=== PATIENT | female | born 1980 | race Caucasian/White ===

== ENCOUNTER 2016-08-28 16:17 | Outpatient (CLI) | payer OTHER ==
[~2016-08-28] VITALS: Ht 167.6 cm; Wt 104.0 kg
[2016-08-28 16:32] VITALS: Ht 167.6 cm; Wt 104.0 kg
[2016-08-28 16:33] VITALS: BP 114/67; PULSE 95; RESP 18
[2016-08-28] MEDS ORDERED: PRENAT PO (16:35)
[2016-08-28] MEDS ORDERED: FERR325C PO (16:36)
[2016-08-28] MEDS ORDERED: LACTATED RINGER'S 1,000 ML IV STA (17:01)
--- NOTE | 2016-08-28 17:48 | CONS ---
ANGELES DORANTES MD 08/28/16 1743: Date/Time of Note Date/Time of Note DATE: 08/28/16 TIME: 17:31 Consultation Date/Type/Reason Admit Date/Time August 28, 2016 Triage consult and H&P The patient is a young 35 years old 4 para 2 AB 1 who had both her deliveries by section. Her estimated date of confinement is September 04, 2016 which makes her 36 weeks and to the. She is scheduled to undergo a repeat section section on September 16 She she was sent here due to low ABDELRAHMAN and an ultrasound that was performed in [facility] On reviewing the ultrasound which was performed in [facility] estimated the age was reported to 35 weeks and 4 days. estimated weight was reported at 2485. The ABDELRAHMAN was 5.21 cm . In reviewing her past medical history, as I mentioned she had 2 section and one induced she also had a appendectomy on your 1999 She denies any allergy no other surgeries or major medical problems in her past No allergy On examination today she is a well-developed well-nourished pleasant patient. At this time she does not have any contraction abdomen is soft heart tone is the tracing is reactive with good variability and repeated accelerations no decelerations. Her vital signs are stable and normal Hx of Present Illness Current Medications Medications (Trade) Dose Ordered Sig/Khoa Route PRN Reason Start Time Stop Time Status Last Admin Dose Admin Lactated Ringer's (Lr) 1,000 ml @ 1,000 mls/hr Q1H STAT IV 08/28/16 17:01 08/28/16 18:00 DC 08/28/16 17:16 On her examination here in triage as I mentioned she does not have any contractions heart tracing was excellent The plan is to hydrate her both orally as well as IV and repeat her ABDELRAHMAN about 4 hours later if improved you would we will discharge her home to be seen soon in the clinic if no improvement In the in the hospital and will repeat the ABDELRAHMAN in the morning end of dictation thank you Subjective hx not possible: other Constitutional: improved, no complaints, No chills, No diaphoresis, No disoriented, No febrile, No other, No poor po, No requiring IVF, No requiring O2 Eyes: No discharge, No no complaints, No other, No pain, No redness, No visual change ENT: No bleeding, No congestion, No discharge, No dysphagia, No no complaints, No other, No pain, No sore throat Respiratory: No cough, No no complaints, No other, No pain, No pleuritic pain, No shortness of breath, No sputum, No wheezing Cardiovascular: No chest pain, No edema, No lightheadedness, No no complaints, No orthopenea, No other, No palpitations, No paroxysmal nocturnal dyspnea Gastrointestinal: No blood, No constipation, No decreased appetite, No diarrhea , No flatus, No nausea, No no complaints, No other, No pain, No passing stool, No vomiting Genitourinary: no complaints (pelvic exam was not done), No bleeding, No discharge, No dysuria, No flank pain, No hematuria, No other Musculoskeletal: no complaints Skin: no complaints Neurologic: no complaints Endocrine: no complaints Lymphatic: no complaints Psychological: nl mood/affect, no complaints, No anxiety, No confusion, No depression, No other, No suicidal Immunologic: no complaints Social History Smoking Status: Former smoker Exam/Review of Systems Vital Signs Vitals Vital Signs Date Time Temp Pulse Resp B/P Pulse Ox O2 Delivery O2 Flow Rate FiO2 08/28/16 16:33 97.5 95 18 114/67 Room Air CEZAR MATTSON MD 08/28/16 2152: Assessment/Plan Assessment/Plan Chief Complaint/Hosp Course ABDELRAHMAN was repeated and is 10.5 Patient has no complaints Will d/c home; patient promises to return tomorrow for repeat ABDELRAHMAN, in Dr. Coronado's office, or here in triage Problems: ANGELES DORANTES MD Aug 28, 2016 17:43 CEZAR MATTSON MD Aug 28, 2016 21:52
--- NOTE | 2016-08-28 21:23 | RADRPT ---
PROCEDURE: OB ultrasound CLINICAL INDICATION: . OB ultrasound with fluid volume assessment. Oligohydramnios TECHNIQUE: Sonographic evaluation to assess the amniotic fluid volume was performed. Transabdomin al imaging of the gravid uterus was performed. COMPARISON: None available. FINDINGS: The amniotic fluid index equals approximately 10.3 cm. heart rate: 117 Beats per minute. Presentation: Cephalic Placenta anterior IMPRESSION: Amniotic fluid index equals 10.3 cm. RPTAT: AADD .Ramon Breaux MD, MD Date Time Electronically viewed and signed by .Ramon Breaux MD, on 08/28/2016 21:23 .B/
--- NOTE | 2016-08-28 22:58 | TRIAGE ---
OB Triage Datetime Report Generated by CPN: 08/28/2016 22:57 Datetime: 08/28/2016 21:16 Stage of : OB Triage Datetime: 08/28/2016 21:10 Stage of : OB Triage Labor Evaluation Frequency: 0 Monitor Mode: External Resting Tone [place]: Relaxed Heart Rate FHR Baseline Rate: 120 FHR Baseline Changes: No Baseline Change Variability: Moderate 6-25 bpm Accelerations: 15X15 Decelerations: None Category: Category I Datetime: 08/28/2016 20:00 Stage of : OB Triage Labor Evaluation Frequency: 0 Monitor Mode: External Resting Tone [place]: Relaxed Heart Rate FHR Baseline Rate: 125 Monitor Mode: External US Variability: Moderate 6-25 bpm Accelerations: 15X15 Decelerations: None Category: Category I Datetime: 08/28/2016 19:43 Stage of : OB Triage Datetime: 08/28/2016 18:32 Stage of : OB Triage Labor Evaluation Frequency: 0 Monitor Mode: External Resting Tone [place]: Relaxed Heart Rate FHR Baseline Rate: 125 Monitor Mode: External US Variability: Moderate 6-25 bpm Accelerations: 15X15 Decelerations: None Category: Category I Datetime: 08/28/2016 17:48 Stage of : OB Triage Datetime: 08/28/2016 17:30 Labor Evaluation Frequency: 0 Monitor Mode: External Resting Tone [place]: Relaxed Heart Rate FHR Baseline Rate: 125 Monitor Mode: External US Variability: Moderate 6-25 bpm Accelerations: 15X15 Decelerations: None Category: Category I Datetime: 08/28/2016 17:00 Stage of : OB Triage Datetime: 08/28/2016 16:51 Stage of : OB Triage Datetime: 08/28/2016 16:29 Assessment Type: Triage Maternal Assessment Level of Consciousness: Fully Conscious DTR's/Clonus: DTRs 2+; No Clonus Headache: Denies Blurred Vision: No Respiratory Effort: Unlabored Breath Sounds, Left: Clear and Equal Breath Sounds, Right: Clear and Equal Nausea/Vomiting: Denies RUQ Epigastric Pain: Denies Lower Extremities Edema: Bilateral Lower Extremities Degree: 1+ Upper Extremities Edema: None Degree: None Facial Edema: None Fall Risk Assessment History of Falling: (0) No Secondary Diagnosis: (15) Yes (Annotations: C/S X2) Ambulatory Aid: (0) Bedrest/Nurse Assist IV Therapy: (0) No Gait: (0) Normal/Bedrest/Immobile Mental Status: (0) Oriented to Own Ability Fall Score: 15 Fall Risk Score Definition: No Risk: No action required Datetime: 08/28/2016 16:23 Monitor Mode: External Monitor Mode: External US Comments: Audible fhts at 138 bts/min Datetime: 08/28/2016 16:21 Time of Arrival: 08/28/2016 16:15 EGA: 36.2 Arrived By: Ambulatory Arrived From: Office Chief Complaint: Sent from [facility] clinic rt low ABDELRAHMAN Movement: Present Contractions: Denies/Absent Rupture of Membranes: Denies Vaginal Bleeding: None Vaginal Discharge: Denies Recent Sexual Intercouse: Denies Abdominal Trauma: Not Applicable Patient Complaints: Other Additional Patient Complaints: ABDELRAHMAN 5.21 AT [facility] TODAY Time Provider Notified: 08/28/2016 16:51 Provider Notified: GLEN Initial Plan: VS, EFM, IV HYDRATION, ABDELRAHMAN AFTER IV HYDRATION
== END 2016-08-28 22:20 | disposition home or self-care (01) ==
LOC: L-D 16:17 → OBT 16:17
PROVIDERS: ATTEND Specialist
DX: O41.03X0 Oligohydramnios, third trimester, not applicable or unspecified (principal); O34.219 Maternal care for unspecified type scar from previous cesarean delivery; Z3A.36 36 weeks gestation of pregnancy; Z87.891 Personal history of nicotine dependence
CPT/HCPCS: 36415; 76815; 96360; 96361; J7120

== ENCOUNTER 2016-09-16 05:53 | Inpatient (IN) | END 2016-09-19 12:40 | disposition home or self-care (01) | DRG 766 | DX: O34.211 Maternal care for low transverse scar from previous cesarean delivery (principal); Z30.2 Encounter for sterilization; Z3A.39 39 weeks gestation of pregnancy; Z37.0 Single live birth ==